=== PATIENT | female | born 1985 | race Caucasian/White ===

== ENCOUNTER 2021-04-18 08:03 | Day surgery (SDC) | payer BC ==
[~2021-04-18 08:03] MED LIST: Lactated Ringers 1,000 ML IV SCH; Sodium Chloride 0.9% 10 ML Syringe FLUSH PRN
[2021-04-18 08:42] VITALS: BP 114/66; PULSE 84
== END 2021-04-18 09:20 | disposition home or self-care (01) ==
LOC: FB.SDS 08:03
PROVIDERS: ATTEND Surgery
DX: K21.9 Gastro-esophageal reflux disease without esophagitis (principal); Z53.09 Procedure and treatment not carried out because of other contraindication; F41.1 Generalized anxiety disorder; Z79.899 Other long term (current) drug therapy; Z98.890 Other specified postprocedural states
CPT/HCPCS: 81025; J7120